=== PATIENT | female | born 1975 | race Caucasian/White ===

== ENCOUNTER 2019-05-02 03:48 | Emergency (ER) | payer MEDICAID ==
[~2019-05-02] VITALS: Ht 160 cm; Wt 72.6 kg
[2019-05-02 04:36] VITALS: Ht 160 cm; Wt 72.6 kg
[2019-05-02 07:22] VITALS: BP 111/71
== END 2019-05-02 07:22 | disposition home or self-care (01) ==
LOC: ED 03:48
DX: F10.129 Alcohol abuse with intoxication, unspecified (principal); Z88.8 Allergy status to other drugs, medicaments and biological substances; Y90.9 Presence of alcohol in blood, level not specified
CPT/HCPCS: Q0162